=== PATIENT | male | born 1970 | race Caucasian/White ===

== ENCOUNTER 2017-05-01 07:02 | Emergency (ER) | payer OTHER ==
[2017-05-01 07:23] VITALS: BP 158/87
--- NOTE | 2017-05-01 07:35 | UC ---
Lower Extremity/Ankle HPI - HPI Summary HPI Summary: 46 yo male c/o burning pains primary to feet but also to his calfs and cheeks walking lessens his symptoms he is a heavy smoker and states he is an alcoholic no f/c no cp or sob - History of Current Complaint Chief Complaint: UCLowerExtremity Stated Complaint: BILATERAL FEET/LEG PAIN Time Seen by Provider: 05/01/17 07:24 Hx Obtained From: Patient Onset/Duration: Gradual Onset, Lasting Weeks - 3 Severity Initially: Mild Severity Currently: Mild Pain Intensity: 4 Pain Scale Used: 0-10 Numeric Aggravating Factor(s): Standing Alleviating Factor(s): Other - ambulating Able to Bear Weight: Yes - Allergies/Home Medications Allergies/Adverse Reactions: Allergies Allergy/AdvReac Type Severity Reaction Status Date / Time No Known Allergies Allergy Verified 05/01/17 07:10 Home Medications: Home Medications Acetaminophen [Acetaminophen Extra Strength] 1,000 mg PO Q4H PRN 05/01/17 [ History Confirmed 05/01/17] Arnica 120 ml TP DAILY PRN 05/01/17 [History Confirmed 05/01/17] Ibuprofen TAB* [Advil TAB*] 400 mg PO Q6H PRN 05/01/17 [History Confirmed ] Lidocaine HCl [Aspercreme W/Lidocaine] 4 % EX DAILY PRN 05/01/17 [History Confirmed 05/01/17] Quetiapine Fumarate [Seroquel] 200 mg PO BEDTIME 05/01/17 [History Confirmed 11/10] Quetiapine Fumarate [Seroquel] 400 mg PO BEDTIME 05/01/17 [History Confirmed 11/10] Sertraline HCl [Zoloft] 200 mg PO DAILY 05/01/17 [History Confirmed 05/01/17] PMH/Surg Hx/FS Hx/Imm Hx Previously Healthy: Yes - Surgical History Surgical History: Yes Surgery Procedure, Year, and Place: ORAL - Family History Known Family History: Positive: Unknown - ADOPTED - Social History Alcohol Use: Daily Substance Use Type: None Smoking Status (MU): Current Every Day Smoker Type: Cigarettes Amount Used/How Often: 1 PPD Length of Time of Smoking/Using Tobacco: 32 Cessation Counseling: Patient Advised to Stop Review of Systems Constitutional: Negative Skin: Negative Eyes: Negative ENT: Negative Respiratory: Negative Cardiovascular: Negative Gastrointestinal: Negative Genitourinary: Negative Motor: Negative Neurovascular: Negative Musculoskeletal: Arthralgia, Myalgia Neurological: Negative Psychological: Negative Is Patient Immunocompromised?: No All Other Systems Reviewed And Are Negative: Yes Physical Exam Triage Information Reviewed: Yes Appearance: Well-Appearing, No Pain Distress, Well-Nourished Vital Signs: Initial Vital Signs Temp 98.3 F 05/01/17 07:15 Pulse 91 05/01/17 07:15 Resp 20 05/01/17 07:15 BP 158/87 05/01/17 07:15 Pulse Ox 98 05/01/17 07:15 Eyes: Positive: Conjunctiva Clear, Other: - anicteric sclera ENT: Positive: Hearing grossly normal, Uvula midline. Negative: Nasal congestion, Nasal drainage Neck: Positive: Supple, Nontender, No Lymphadenopathy Respiratory: Positive: Lungs clear, Normal breath sounds, No respiratory distress, No accessory muscle use Cardiovascular: Positive: RRR, No Murmur Musculoskeletal: Positive: ROM Intact, No Edema Neurological: Positive: Alert Psychological Exam: Normal Diagnostics - Laboratory Diagnostic Studies Completed/Ordered: FS glucose -104 Lower Extremity Course/Dx - Differential Dx/Diagnosis Provider Diagnoses: suspected neuropathy Discharge - Discharge Plan Condition: Stable Disposition: HOME Prescriptions: Gabapentin CAP(*) [Neurontin 300 CAP(*)] 300 mg PO TID #15 cap Patient Education Materials: Peripheral Neuropathy (ED) Referrals: Erika Mon NP [Primary Care Provider] - 3 Days Additional Instructions: see your provider in 3 days as planned continue ibuprofen
[2017-05-01 13:44] LABS: EGFR Non-African American 153.2 (>60)
[2017-05-01 14:08] LABS: ABS Basophils 0.1 10^3/ul (0-0.2); ABS Eosinophils 0 10^3/ul (0-0.6); ABS Lymphocytes 1.1 10^3/ul (1.0-4.8); ABS Monocytes 0.5 10^3/ul (0-0.8); ABS Neutrophils 4.6 10^3/ul (1.5-7.7); ABS Nucleated RBC 0 10^3/ul; Eosinophil % 0.5 % (0-6); Hematocrit 36 % (42-52); Hemoglobin 12.1 g/dl (14.0-18.0); Lymphocyte % 17.8 % (25-47); Mean Corpuscular HGB Conc 34 g/dl (31-36); Mean Corpuscular Hemoglobin 38 pg (27-31); Mean Corpuscular Volume 113 fL (80-94); Mean Platelet Volume 7 um3 (7.4-10.4); Nucleated Red Blood Cells % 0.3; Platelet Count 239 10^3/ul (150-450); Red Blood Count 3.18 10^6/ul (4.0-5.4); Red Cell Distribution Width 17 % (10.5-15); White Blood Count 6.3 10^3/ul (3.5-10.8)
--- NOTE | 2017-05-02 08:25 | UC ---
- Progress Note Progress Note: Please call patient. Mild Anemia. Borderline low Vitamin B12. Start OTC vit B12 supplement 1mg a day with a meal. Make sure to f/u with PCP.
== END 2017-05-01 08:11 | disposition home or self-care (01) ==
LOC: UCCORT 07:02
DX: M79.672 Pain in left foot (principal); M79.671 Pain in right foot; M79.662 Pain in left lower leg; M79.661 Pain in right lower leg; R51 Headache; F17.210 Nicotine dependence, cigarettes, uncomplicated; D64.9 Anemia, unspecified
CPT/HCPCS: 36415; 80053; 82607; 82746; 84443; 85025; 99202; G0463